=== PATIENT | male | born 1985 | race African-American/Black ===

== ENCOUNTER 2017-08-12 15:46 | Emergency (ER) | payer BC ==
[~2017-08-12] VITALS: Ht 170.2 cm; Wt 72.6 kg
[2017-08-12] MEDS ORDERED: NKM (16:07)
[2017-08-12 16:16] VITALS: BP 139/91
--- NOTE | 2017-08-12 16:40 | Emergency Room Report ---
History of Present Illness General Chief Complaint: Laceration Source: Patient Present Illness HPI 31-year-old male presents to the emergency department complaining of pain that is 3 out of 10 in severity to the right second, third, and fourth fingers with overlying laceration. Patient states that his hand was closed in a door and nontender he sustained this injury. Patient states he is right-handed, he states he is up-to-date with his tetanus vaccination, he denies taking blood thinning medications. He reports that bleeding has subsided at this time. Denies numbness tingling or loss of sensation or gross motor movements of the extremities, incontinence of bowel or bladder. Denies CP, Palpitations, LOC, AMS , dizziness, Changes in Vision, Sensation, paresthesias, or a sudden severe headache. . Allergies: Coded Allergies: No Known Allergies (Unverified , 08/12/17) Patient History Past Medical History: see triage record Past Surgical History: none Pertinent Family History: none Immunizations: UTD Reviewed Nursing Documentation: PMH: Agreed; PSxH: Agreed Nursing Documentation-PMH Past Medical History: No Stated History Review of Systems All Other Systems: negative except mentioned in HPI Physical Exam Vital Signs Date Time Temp Pulse Resp B/P (MAP) Pulse Ox O2 Delivery O2 Flow Rate FiO2 08/12/17 16:04 98.8 96 16 139/91 95 Room Air 98.8 Sp02 EP Interpretation: reviewed, normal General Appearance: no apparent distress, alert, GCS 15, non-toxic Head: normocephalic, atraumatic ENT: hearing grossly normal, normal voice Neck: full range of motion Respiratory: chest non-tender, lungs clear, normal breath sounds, speaking full sentences Cardiovascular #1: regular rate, rhythm, normal capillary refill Gastrointestinal: normal bowel sounds, non tender, soft Rectal: deferred Genitourinary: normal inspection Musculoskeletal: back normal, gait/station normal, normal range of motion, tender - TTP to the distal right hand. Neurologic: alert, oriented x3, responsive, motor strength/tone normal, sensory intact, normal gait, speech normal, grossly normal Psychiatric: judgement/insight normal Skin: normal color, no rash, warm/dry, well hydrated, laceration - right middle finger laceration approx 4 cm in length , and right index finger laceration 3cm in length. pt. also has more superficial 2cm laceration to the right ring finger. Lymphatic: no adenopathy Procedures Laceration/Wound Repair Laceration/Wound Repair #1: Consent: Emergent Wound Location: upper extremity - right middle finger Wound's Depth, Shape: flap Wound Length (cm): 4 Wound Explored: clean Irrigated w/ Saline (ccs): 500 Anesthesia: 1% Lidocaine Volume Anesthetic (ccs): 5 Wound Repaired With: sutures Suture Size/Type: 5:0 Number of Sutures: 7 Layer Closure?: No Sterile Dressing Applied?: Yes Splint Applied?: Yes Type of Splint Applied: Finger splint Sling Applied?: No Patient Tolerated: Well Complications: None Laceration/Wound Repair #2: Consent: Verbal Wound Location: upper extremity - Right index finger Wound's Depth, Shape: flap Wound Length (cm): 3 Wound Explored: clean Irrigated w/ Saline (ccs): 500 Anesthesia: 1% Lidocaine Volume Anesthetic (ccs): 5 Wound Repaired With: sutures Suture Size/Type: 5:0 Number of Sutures: 3 Layer Closure?: No Sterile Dressing Applied?: Yes Splint Applied?: Yes Type of Splint Applied: Finger splint Sling Applied?: No Patient Tolerated: Well Complications: None Medical Decision Making PA Attestation Dr. galvan is my supervising Physician whom patient management has been discussed with. Diagnostic Impression: Primary Impression: Laceration Additional Impression: Contusion of hand, right Qualified Codes: S60.221A - Contusion of right hand, initial encounter ER Course 31-year-old male presents to the emergency department complaining of pain that is 3 out of 10 in severity to the right second, third, and fourth fingers with overlying laceration. Patient states that his hand was closed in a door and nontender he sustained this injury. Patient states he is right-handed, he states he is up-to-date with his tetanus vaccination, he denies taking blood thinning medications. He reports that bleeding has subsided at this time. Denies numbness tingling or loss of sensation or gross motor movements of the extremities, incontinence of bowel or bladder. Denies CP, Palpitations, LOC, AMS , dizziness, Changes in Vision, Sensation, paresthesias, or a sudden severe headache. . Ddx considered but are not limited to laceration, tendon injury, cellulitis, amputation Vital signs: are WNL, pt. is afebrile H&PE are most consistent with: right middle finger laceration approx 4 cm in length , and right index finger laceration 3cm in length. pt. also has more superficial 2cm laceration to the right ring finger. All lacs are on the palmar surface. ORDERS: none required at this time, the diagnosis is clinical ED INTERVENTIONS: -Tetanus vaccine was administered as pt. vaccination status was unknown. - The wound was copiously irrigated with normal saline, and explored for foreign body for which no FB was found. - pt. is anesthetized with 1%lidocaine using tendon sheath digital block method. - The wound was approximated and closed using 7 interrupted 5.0 Ethilon sutures. -The wound was approximated and closed using 3 interrupted 5.0 Ethilon sutures. -Bacitracin and sterile dressing is applied. Finger Splint applied to the right middle finger by commercial kitchen service technician. Pt. remains neurovascularly intact. Finger Splint applied to the right index finger by commercial kitchen service technician. Pt. remains neurovascularly intact. Discussed with patient: That we make every effort to approximate the laceration as best as we can so that scarring will be as cosmetically pleasing as possible with our limited cosmetic skill set in the Emergency dept. Regardless of our best efforts there will be scarring after laceration repair. The extent of scarring is unknown at this time. DISCHARGE: At this time pt. is stable for d/c to home. Will provide printed patient care instructions, and any necessary prescriptions. Care plan and follow up instructions have been discussed with the patient prior to discharge. Other X-Ray Diagnostic Results Other X-Ray Diagnostic Results : X-Ray ordered: Right Hand # of Views/Limited Vs Complete: 3 View Indication: Pain EP Interpretation: Yes ANGELLA Xray: Interpretation reviewed, by supervising MD, and agrees with findings. Interpretation: no dislocation, no soft tissue swelling, no fractures Impression: No acute disease Electronically Signed by: Teena Funetes PA-C Last Vital Signs Date Time Temp Pulse Resp B/P (MAP) Pulse Ox O2 Delivery O2 Flow Rate FiO2 08/12/17 16:16 98.8 16 139/91 95 Room Air 98.8 08/12/17 16:04 96 Disposition: HOME, SELF-CARE Condition: Stable Scripts Bacitracin/Polymyxin B Sulfate (BACITRACIN-POLYMYXIN OINTMENT) 28.35 Gm Oint...g. 1 APPLIC TP BID, #28.3 GM Prov: Teena Fuentes 08/12/17 Cephalexin* (KEFLEX*) 500 Mg Capsule 500 MG ORAL EVERY 12 HOURS, #14 CAP 0 Refills Prov: Teena Fuentes 08/12/17 Patient Instructions: Laceration Care, Adult Additional Instructions: Take medications as directed. * Sutures to be removed in 10-14 days. * Keep clean and Dry!! do not submerge into water. Follow up with a Primary Care Provider in 3-5 days, even if your symptoms have resolved. --Please review list of primary care clinics, if you do not already have a primary care provider Return sooner to ED if new symptoms occur, or current symptoms become worse. - Please note that this Emergency Department Report was dictated using [employer] technology software, occasionally this can lead to erroneous entry secondary to interpretation by the dictation equipment. Teena Fuentes August 12, 2017 16:40
--- NOTE | 2017-08-12 17:12 | Diagnostic Imaging Report ---
EXAM: XR Right Hand Complete, 3 or More Views CLINICAL HISTORY: PAIN TECHNIQUE: Frontal, lateral and oblique views of the right hand. COMPARISON: No relevant prior studies available. FINDINGS: Bones/joints: No acute fracture. Soft tissues: Soft tissue injury of the third finger. No radiodense foreign body. IMPRESSION: No acute fracture.
[2017-08-12] MEDS ORDERED: CEPHALEXIN500 MG ORAL (18:05)
[2017-08-12] MEDS ORDERED: BACITRACIN-P28.35 GM TP (18:05)
[2017-08-12] MEDS ORDERED: Bacitracin Oint UD TOPIC ONE (18:12)
[2017-08-12 18:23] VITALS: BP 139/91
== END 2017-08-12 18:32 | disposition home or self-care (01) ==
LOC: EMR 16:51
DX: S61.212A Laceration without foreign body of right middle finger without damage to nail, initial encounter (principal); S61.210A Laceration without foreign body of right index finger without damage to nail, initial encounter; S61.214A Laceration without foreign body of right ring finger without damage to nail, initial encounter; W23.0XXA Caught, crushed, jammed, or pinched between moving objects, initial encounter; Y92.89 Other specified places as the place of occurrence of the external cause
CPT/HCPCS: 99284